=== PATIENT | female | born 1940 | race Caucasian/White ===

== ENCOUNTER 2016-10-31 19:08 | Emergency (ER) | payer OTHER ==
[2016-10-31] MEDS ORDERED: SODIUM CHLORIDE 1,000 ML IV STA (19:17)
--- NOTE | 2016-10-31 19:17 | PDOC ---
History of Present Illness <Phillip Han - Last Filed: 10/31/16 20:23> - General History Source: Patient, Family, Old Records Exam Limitations: No Limitations - History of Present Illness Initial Comments: 10/31/16 19:18 The patient is a 76 female, accompanied by daughter, with past medical history of HTN, HLD, and GERD, who presents to the emergency department for further evaluation of abdominal pain and constipation. As per daughter, the patient had hernia surgery performed on Friday by Dr. Marc Pope. The patient has not had any bowel movements or flatulence since Friday. The patient states that she hand one episode of vomiting 30 minutes ago. As per daughter the patient had a fever yesterday (Tmax 38C) that has since resolved. <Shakeel Hernandez - Last Filed: 10/31/16 20:29> - General Chief Complaint: Pain, Acute Stated Complaint: ABD PAIN Time Seen by Provider: 10/31/16 19:08 Past History - Past Medical History HTN: Yes Hypercholesterolemia: Yes - Psycho/Social/Smoking Cessation Hx Anxiety: No Suicidal Ideation: No Smoking History: Never smoked Hx Alcohol Use: No Drug/Substance Use Hx: No Substance Use Type: None <Phillip Han - Last Filed: 10/31/16 20:23> <Shakeel Hernandez - Last Filed: 10/31/16 20:29> - Past Medical History Allergies/Adverse Reactions: Allergies Allergy/AdvReac Type Severity Reaction Status Date / Time No Known Allergies Allergy Verified 10/31/16 19:19 Home Medications: Ambulatory Orders Aspirin [ASA -] 81 mg PO DAILY 02/03/16 Atorvastatin Ca [Lipitor] 20 mg PO HS 02/03/16 Losartan/Hydrochlorothiazide [Losartan-Hctz 100-25 mg Tab] 1 each PO DAILY 02/02 Lactulose (Oral Use) [Cephulac -] 20 gm PO TID #1 bottle 10/31/16 Review of Systems - Review of Systems Able to Perform ROS?: Yes ABD/GI: Yes: Symptoms Reported, See HPI, Constipated, Other (Abdominal pain) <Shakeel Hernandez - Last Filed: 10/31/16 20:29> *Physical Exam - Physical Exam General Appearance: Yes: Nourished, Appropriately Dressed. No: Apparent Distress HEENT: positive: Normal ENT Inspection Respiratory/Chest: positive: Lungs Clear, Normal Breath Sounds. negative: Respiratory Distress Cardiovascular: positive: Regular Rhythm, Regular Rate Gastrointestinal/Abdominal: positive: Normal Bowel Sounds, Tender, Soft, Distended. negative: Guarding, Rebound Musculoskeletal: negative: CVA Tenderness Extremity: positive: Normal Capillary Refill. negative: Pedal Edema Integumentary: positive: Normal Color, Ecchymosis (abd wall incitional and llq.) Neurologic: positive: Fully Oriented, Alert, Normal Mood/Affect, Normal Response , Motor Strength 5/5 <Phillip Han - Last Filed: 10/31/16 20:23> ED Treatment Course - LABORATORY CBC & Chemistry Diagram: 10/31/16 19:09 10/31/16 19:09 - RADIOLOGY Radiology Studies Ordered: Category Date Time Status ABDOMEN FLAT & UPRIGHT [RAD] Stat Radiology 10/31/16 19:09 Ordered <Phillip Han - Last Filed: 10/31/16 20:23> - LABORATORY CBC & Chemistry Diagram: 10/31/16 19:09 10/31/16 19:09 - RADIOLOGY Radiograph Interpretation: 10/31/16 20:29 EXAM#: TYPE/EXAM: RESULT: [id number] RAD/ABDOMEN FLAT UPRIGHT Abdominal pain and distention. X-ray of the abdomen supine and upright. There is a large amount of fecal residue seen in the ascending and likely proximal portion of the transverse colon. There is significant air distention of the colon measuring up to 9.5 cm in diameter in left side of the abdomen and 14 cm in diameter at the cecal level. Mild air distention of the distal descending colon. Sigmoid colon is not distended. Small bowel gas pattern is nonobstructive. No gross organomegaly or free air is identified. Visualized osseous structures appear intact. Mild atelectatic changes in the left lung base. There is also suggestion of mild cardiomegaly Impression: Large amount of stools within a dilated ascending colon. Moderate air distention of the transverse and proximal descending colon. Mild air distention of the distal descending colon. Sigmoid colon is not distended. Reported By: Rakesh Ryan MD 10/31/16 1959 <Shakeel Hernandez - Last Filed: 10/31/16 20:29> Progress Note - Progress Note Progress Note: s/p hernia repair no bm's or flatus since friday xray labs ivf 8:23 PM NO EV OF SBO BUT LARGE AMOUNTS OF STOOL ASCENDING COLON LACTULOSE, PO FLUIDS. STOP PERCOCET D/W PMD (DR. POPE) PT WILL CALL IN AM <Phillip Han - Last Filed: 10/31/16 20:23> *DC/Admit/Observation/Transfer <Phillip Han - Last Filed: 10/31/16 20:23> - Attestations Scribe Attestion: 10/31/16 19:19 Documentation prepared by Shakeel Hernandez, acting as emergency medical tech for Phillip Han MD. <Shakeel Hernandez - Last Filed: 10/31/16 20:29> Diagnosis at time of Disposition: Constipation due to pain medication Diagnosis at time of Disposition: (Ruled Out): Slow transit constipation - Discharge Dispostion Disposition: HOME Condition at time of disposition: Improved - Prescriptions Prescriptions: Lactulose (Oral Use) [Cephulac -] 20 gm PO TID #1 bottle - Patient Instructions Additional Instructions: TAKE MEDICATIONS PRESCRIBED PLENTY OF FLUIDS (WATER/GATORADE/PEDIALYTE) BLAND DIET, ADVANCE TOLERATED EAT FREQUENT, SMALL MEALS THROUGHOUT THE DAY LACTULOSE PRESCRIBED RETURN IF FEVER, VOMITING, SEVERE PAIN CALL DR. POPE'S OFFICE TOMORROW
[2016-10-31 19:21] VITALS: BP 178/115; PULSE 110; TEMP 97.6; BMI 34.3
[2016-10-31 19:22] LABS: MCH 30.6 pg (25.7-33.7); MCHC 34.4 g/dl (32.0-36.0); MEAN PLT VOLUME 9.3 fl (7.5-11.1); PLATELET COUNT 196 K/MM3 (134-434); RDW 12.5 % (11.6-15.6); WHITE BLOOD COUNT 10.6 K/mm3 (4.0-10.0)
[2016-10-31 19:35] LABS: CALCIUM 8.9 mg/dl (8.4-10.2); CREATININE 0.6 mg/dl (0.6-1.3)
[2016-10-31] MEDS ORDERED: LACTULOSE 20 GM/30 ML UDC (FOR ORAL USE ONLY) PO ONE (20:10)
[2016-10-31] MEDS ORDERED: ONDANSETRON 4 MG/2 ML VIAL IVPB ONE (20:22)
[2016-10-31] MEDS ORDERED: KETOROLAC TROMETHAMINE 30 MG/1 ML VIAL IVPUSH ONE (20:22)
[2016-10-31] MEDS ORDERED: LACTULOSE 20 GM/30 ML UDC (FOR ORAL USE ONLY) ONE (20:27)
[2016-10-31] MEDS ORDERED: KETOROLAC TROMETHAMINE 30 MG/1 ML VIAL ONE (20:27)
[2016-10-31] MEDS ORDERED: ONDANSETRON 4 MG/2 ML VIAL ONE (20:30)
== END 2016-10-31 21:06 | disposition home or self-care (01) ==
LOC: FER 19:08
PROC: 3E0333Z Introduction of Anti-inflammatory into Peripheral Vein, Percutaneous Approach (ICD-10-PCS; principal; 2016-10-31)
PROC: 3E033GC Introduction of Other Therapeutic Substance into Peripheral Vein, Percutaneous Approach (ICD-10-PCS; 2016-10-31)
PROC: 3E0337Z Introduction of Electrolytic and Water Balance Substance into Peripheral Vein, Percutaneous Approach (ICD-10-PCS; 2016-10-31)
DX: K59.03 Drug induced constipation (principal); I10 Essential (primary) hypertension; E78.00 Pure hypercholesterolemia, unspecified; K21.9 Gastro-esophageal reflux disease without esophagitis
CPT/HCPCS: 36415; 74020-TC; 80048; 85025; 99283-25

== ENCOUNTER 2018-07-17 16:10 | Emergency (ER) | payer OTHER ==
[2018-07-17 16:37] VITALS: BP 148/84; PULSE 70; TEMP 97.4; BMI 37.4
--- NOTE | 2018-07-17 16:58 | PDOC ---
Attending Attestation - Resident Resident Name: Rosana Mclaughlin - ED Attending Attestation I have performed the following: I have examined & evaluated the patient, The case was reviewed & discussed with the resident, I agree w/resident's findings & plan, Exceptions are as noted - HPI HPI: 07/17/18 16:55 78 yo F with h/o HTN HLD (atorvastatin, asa, losartan) here with c/o rash under left breast chest wall back. describes burnign itching sensation followed by prurutic rash with scabs. no sob. no weakness no numbness. no new sick contacts. no f/c did not take any thing prior to coming to ed. no new lotions or detergens. no new meds. - Physicial Exam PE: 07/17/18 16:56 awake alert lungs clear bilaterally heart rrr no mrg abd soft nt nd. left lateral thorax wtih clusters of scabbed, excoriated vesicular rash. few scatter scab anteriorly and posteriorly in T4 / T5 dermatome. left side only. - Medical Decision Making 07/17/18 16:57 pt with classic zoster appearing rash. no need for valtrex or antiviral as already day 7. recommend benadryl as needed for rash. topical ointment for itching and follow up wtih on friday. ( 5 days from today. )
--- NOTE | 2018-07-17 17:00 | PDOC ---
History of Present Illness - General Chief Complaint: Rash Stated Complaint: rash under left breast Time Seen by Provider: 07/17/18 16:53 - History of Present Illness Initial Comments: Sandhya Tobin is an 78yo woman with a PMH of Sandhyafrankie Tobin is an 78yo woman with a PMH of HTN and HLD who presents with one week of rash along her left side. Her daughter brought her for evaluation because she tried to make an appointment with her PMD but they could not get an appointment until next week. Her daughter is concerned that Ms Tobin has shingles. Ms Tobin states that she first noticed the rash last Friday. She reports some numbness in the skin around the area as well as burning pain and some itching. However, she reports that the symptoms are mild to moderate and are already improving. She has not been taking anything at home for her symptoms. She does report having chicken pox as a child and did not receive the shingles vaccine as an adult. She has not had any fevers, chills, chest pain, SOB, rash anywhere else on her body, or any other current symptoms. Past History - Past Medical History Allergies/Adverse Reactions: Allergies Allergy/AdvReac Type Severity Reaction Status Date / Time No Known Allergies Allergy Verified 07/17/18 16:25 Home Medications: Ambulatory Orders Aspirin [ASA -] 81 mg PO DAILY 02/03/16 Atorvastatin Ca [Lipitor] 20 mg PO HS 02/03/16 Losartan Potassium 50 mg PO DAILY 07/17/18 COPD: No HTN: Yes Hypercholesterolemia: Yes - Suicide/Smoking/Psychosocial Hx Smoking History: Never smoked Hx Alcohol Use: No Drug/Substance Use Hx: No Substance Use Type: None Review of Systems - Review of Systems Comments:: General: No fevers, no chills, no weight or appetite change, no malaise HEENT: No changes in vision, no changes in hearing, no congestion, no sore throat CV: No chest pain, no palpitations, no LE edema Pulm: No SOB, no cough, no wheezing GI: No nausea or vomiting, no change in bowel habits, no melena : No frequency, no urgency, no dysuria Musc: No back pain, no joint swelling, no recent injury Skin: See HPI Endo: No excessive thirst, no heat/cold intolerance Heme: No unusual bruising or bleeding, no swollen glands Neuro: No syncope, no numbness/tingling, no focal weakness Vasc: No claudication Psych: No recent change in mood, no SI or HI *Physical Exam - Vital Signs Last Vital Signs Temp Pulse Resp BP Pulse Ox 97.4 F L 70 18 148/84 98 07/17/18 16:11 07/17/18 16:11 07/17/18 16:11 07/17/18 16:11 07/17/18 16:11 - Physical Exam Comments: General: Comfortable, no acute distress HEENT: PERRL, EOMI, MMM, voice normal, normal neck ROM Cards: RRR, no murmur appreciated Pulm: Comfortable on room air Abd: Soft, nontender, nondistended Ext: Atraumatic. No LE edema. ROM intact. Strength 5/5 and equal bilaterally Vasc: Extremities WWP. Skin: Normal color. Patchy vesicular rash with erythematous borders and central scabbing along left bra-line, roughly T4 or T5 dermatome. Rash located on left only in horizontal distribution, does not cross midline. Neuro: A&Ox3, CN grossly intact, normal speech, motor/sensory grossly intact and symmetric Psych: Mood appropriate to situation Moderate Sedation - Procedure Monitoring Vital Signs: Procedure Monitoring Vital Signs Temperature 97.4 F L 07/17/18 16:11 Pulse Rate 70 07/17/18 16:11 Respiratory Rate 18 07/17/18 16:11 Blood Pressure 148/84 07/17/18 16:11 O2 Sat by Pulse Oximetry (%) 98 07/17/18 16:11 Medical Decision Making - Medical Decision Making 07/17/18 16:53 Sandhya Tobin is an 78yo woman with a PMH of HTN and HLD who presents with one week of a left-sided rash along the bra line with associated burning pain, itching, numbness that is consistent with herpes zoster. - Physical exam consistent with zoster - As symptoms have been present for one week, no antiviral prescription - Discussed home care with acetaminophen and diphenhydramine for symptoms - Patient and daughter both state understanding and agreement Discussed with Dr Escamilla. Rosana Mclaughlin PGY1 *DC/Admit/Observation/Transfer Diagnosis at time of Disposition: Herpes zoster - Discharge Dispostion Disposition: HOME Condition at time of disposition: Stable Decision to Admit order: No - Referrals - Patient Instructions Printed Discharge Instructions: DI for Shingles Additional Instructions: Discharge Instructions: You were seen in the emergency department for a rash along the left side of your torso. This rash is most likely herpes zoster, more commonly called shingles. Home Care: - As your rash has been present for a week and appears to be healing, you have not been prescribed an anti-viral medication. - You may use 650-1000mg acetaminophen (Tylenol) every 6hrs as needed for burning/pain - You may take 25mg every 6hrs as needed for itching - If you have consistent skin dryness and itching, you may apply bacitracin ointment as needed to the affected area. Follow Up: - Please follow up with your primary doctor within the next week to make sure you are recovering well - Seek immediate medical care if your symptoms significantly worsen, continue to spread, or you have additional neurological symptoms such as weakness in one part of the body. You should also seek treatment at the nearest emergency room for any medical emergency. - Post Discharge Activity
== END 2018-07-17 17:19 | disposition home or self-care (01) ==
LOC: FER 16:10
DX: B02.9 Zoster without complications (principal); I10 Essential (primary) hypertension; E78.5 Hyperlipidemia, unspecified
CPT/HCPCS: 99281-25

== ENCOUNTER 2019-08-25 08:09 | Day surgery (SDC) | payer OTHER ==
[2019-08-24 16:52] VITALS: BMI 36.3
[2019-08-25] MEDS ORDERED: OFLOXACIN 0.3% OPHTHALMIC SOLUTION 5 ML BOTTLE ONE (08:34)
[2019-08-25] MEDS ORDERED: ACETAMINOPHEN 325 MG TABLET (FP) PO PRN (08:34)
[2019-08-25] MEDS ORDERED: KETOROLAC TROMETHAMINE 0.5% EYE DROP 1 DROP DROPS ONE (08:35)
[2019-08-25] MEDS ORDERED: CYCLOPENTOLATE HCL 1% OPHTH SOLN 2 ML BOTTLE ONE (08:35)
[2019-08-25] MEDS ORDERED: TROPICAMIDE 1% OPHTH SOLN 15 ML BOTTLE ONE (08:35)
[2019-08-25] MEDS ORDERED: PHENYLEPHRINE 2.5% OPHTH SOLN 15 ML BOTTLE ONE (08:35)
[2019-08-25] MEDS ORDERED: KETOROLAC TROMETHAMINE 0.5% EYE DROP 1 DROP DROPS OP SCH (08:45)
[2019-08-25] MEDS ORDERED: TROPICAMIDE 1% OPHTH SOLN 15 ML BOTTLE OP SCH (08:45)
[2019-08-25] MEDS ORDERED: OFLOXACIN 0.3% OPHTHALMIC SOLUTION 5 ML BOTTLE OP SCH (08:45)
[2019-08-25] MEDS ORDERED: PHENYLEPHRINE 2.5% OPHTH SOLN 15 ML BOTTLE OP SCH (08:45)
[2019-08-25] MEDS ORDERED: CYCLOPENTOLATE HCL 1% OPHTH SOLN 2 ML BOTTLE OP SCH (08:45)
[2019-08-25 09:01] VITALS: TEMP 97.9
[2019-08-25] MEDS ORDERED: EPINEPHrine/PF 1 MG/1 ML (1:1,000) AMPULE ONE (09:35)
[2019-08-25] MEDS ORDERED: BUPIVACAINE HCL/PF 0.75% 10 ML VIAL ONE ×2 (09:35→09:36)
[2019-08-25] MEDS ORDERED: LIDOCAINE HCL/PF 2% SDV 5ML VIAL ONE (09:36)
[2019-08-25] MEDS ORDERED: SUCCINYLCHOLINE CHLORIDE 200 MG/10 ML SYRINGE ONE (09:55)
[2019-08-25] MEDS ORDERED: PROPOFOL 20 ML ONE (09:55)
[2019-08-25] MEDS ORDERED: TETRACAINE 0.5% HCL 0.6ML DROPPER.BOTTLE OD ONE (09:56)
[2019-08-25] MEDS ORDERED: POVIDONE-IODINE 5% OPHTHALMIC PREP 30 ML SOLUTION OD ONE (09:57)
[2019-08-25] MEDS ORDERED: LIDOCAINE HCL/PF 2% SDV 5ML VIAL INF ONE ×2 (10:00→10:02)
[2019-08-25] MEDS ORDERED: BUPIVACAINE HCL/PF 0.75% 10 ML VIAL RB ONE (10:00)
[2019-08-25] MEDS ORDERED: BUPIVACAINE HCL/PF 0.75% 10 ML VIAL PNB ONE (10:02)
[2019-08-25] MEDS ORDERED: LIDOCAINE HCL 1% PRESERVATIVE FREE - 30ML VIAL IO ONE (10:15)
[2019-08-25] MEDS ORDERED: CHONDROITIN SU A/HYALUR SOD 1 KIT IO ONE (10:16)
[2019-08-25] MEDS ORDERED: CHONDROITIN SU A/HYALUR SOD 1 KIT ONE (10:16)
[2019-08-25] MEDS ORDERED: EPINEPHrine/PF 1 MG/1 ML (1:1,000) AMPULE SQ ONE (10:20)
[2019-08-25 11:26] VITALS: BP 141/76; PULSE 72
--- NOTE | 2019-08-26 10:59 | SPEC ---
DATE OF OPERATION: 08/25/2019 OPERATION: Phacoemulsification with posterior chamber intraocular lens implantation, right eye, lens used [id number], 21.0 Diopter, Serial No. [id number]. PREOPERATIVE DIAGNOSIS: Cataract, right eye. POSTOPERATIVE DIAGNOSIS: Cataract, right eye. SURGEON: Michael Zambrano M.D. ANESTHESIA: Peribulbar/Modified Van Lint/MAC. COMPLICATIONS: None. PROCEDURE: The patient was brought to the operating room and correctly identified along with the operative site and a correct intraocular lens stiles. The patient was then given a peribulbar block under sedation with 5 mL of a 1:1 mixture of 2% Lidocaine and 0.5% Bupivacaine. Two to 3 mL of the same mixture was given as a modified Van Lint block. The eye was then prepped and draped in the usual sterile fashion including 5% Betadine solution in the conjunctival sac and an eyelid drape. An eyelid speculum was then placed into the eye. A paracentesis port was created. Viscoelastic was injected to inflate the anterior chamber. A temporal clear corneal wound was created. A continuous circular capsulorrhexis was performed. The nucleus was then hydro-dissected and removed phacoemulsification via the [id number] approach. The remaining cortical material was irrigated and aspirated from the eye. Viscoelastic was injected to inflate the capsular bag. The lens was injected into the capsular bag. Viscoelastic was then irrigated and aspirated from the eye. The intraocular lens was noted to be well centered and covered by the anterior capsular border. All wounds were found to be watertight. Topical Vancomycin was given. The eye patch and shield were placed. The patient was discharged from the operating room in stable condition. Rhett JARAMILLO/[id number]
== END 2019-08-25 11:40 | disposition home or self-care (01) ==
LOC: JASU-SURG 08:09
PROVIDERS: ATTEND Ophthalmology
PROC: 08RJ3JZ Replacement of Right Lens with Synthetic Substitute, Percutaneous Approach (ICD-10-PCS; principal; 2019-08-25 10:00)
DX: H26.9 Unspecified cataract (principal)